=== PATIENT | male | born 1940 | race Caucasian/White ===

== ENCOUNTER → 2019-02-18 | Outpatient (CLI) | payer MEDICARE, OTHER ==
--- NOTE | 2019-02-18 15:08 | RADIOLOGY IMAGING REPORT ---
[place]AC[place] [facility] [place] NAME: Kermit Strauss : 1940 MR: [id number] V: [id number] EXAM DATE: ORDERING PHYSICIAN: DORON GRIFFITHS TECHNOLOGIST: Location: [facility] Patient: Kermit Strauss : 1940 Visit/Account:[id number] Date of Sevice: 02/18/2019 KIDNEYS Indication: History of kidney stones. History of urinary incontinence and frequency. Procedure: There has been satisfactory grayscale ultrasonic evaluation of the kidneys and bladder. Comparison: None. Findings: Right side: The right kidney measures 10.4 cm x 5.3 cm x 5.7 cm in its sagittal, transverse and AP dimensions. Th e right kidney shows no findings of hydronephrosis. The resistive index is 0.65. In the lower pole there is a small 1.7 x 1.8 cm small parapelvic cyst. There is a simple cortical cyst inferiorly that measures 1.5 and 1.8 cm in size. There is no solid mass. Left side: The left kidney measures 12.3 cm x 4.3 cm x 5.6 cm in its sagittal, transverse and AP dimensions. The left kidney shows findings of hydronephrosis. There are 2 cysts in the lower pole the left kidney. One cyst measures 3.7 x 3.7 cm in size and another measures 3.8 x 4.0 cm in size. Smaller parapelvi c cyst is noted superiorly. Bladder: The bladder is unremarkable and there is no significant post void residual. Bilateral urete ral jets are seen. There is BPH. IMPRESSION: 1. No findings of hydronephrosis involving the right or left kidney. 2. Bilateral renal cysts as described above. 3. BPH with out significant post void residual. Report Dictated By: Andrea Haynes MD at 02/18/2019 2:57 PM Report E-Signed By: Andrea Haynes MD at 02/18/2019 3:03 PM WSN:[id number]
== END ==
LOC: US 13:17
PROVIDERS: ATTEND Urology
DX: N20.0 Calculus of kidney (principal); R35.0 Frequency of micturition; R32 Unspecified urinary incontinence
CPT/HCPCS: 76705